=== PATIENT | female | born 1990 | race African-American/Black ===

== ENCOUNTER 2017-06-23 07:03 | Emergency (ER) | END 2017-06-23 09:10 | disposition home or self-care (01) ==

== ENCOUNTER 2017-10-29 07:42 | Emergency (ER) | END 2017-10-29 08:52 | disposition home or self-care (01) ==

== ENCOUNTER 2017-11-19 07:35 | Emergency (ER) | END 2017-11-19 10:09 | disposition home or self-care (01) ==

== ENCOUNTER 2017-12-15 04:31 | Emergency (ER) | END 2017-12-15 05:43 | disposition home or self-care (01) ==

== ENCOUNTER 2018-01-30 05:33 | Inpatient (IN) | END 2018-01-31 16:20 | disposition home or self-care (01) | DRG 832 ==

== ENCOUNTER 2018-02-03 02:47 | Emergency (ER) | END 2018-02-03 05:29 | disposition home or self-care (01) ==

== ENCOUNTER 2018-02-04 03:44 | Observation (INO) | END 2018-02-06 11:29 | disposition home or self-care (01) ==

== ENCOUNTER 2018-02-24 01:27 | Emergency (ER) | END 2018-02-24 04:20 | disposition home or self-care (01) ==

== ENCOUNTER 2018-06-22 18:10 | Outpatient (CLI) | payer OTHER ==
[~2018-06-22 18:10] MED LIST: ACET500C5 PO; CEPH-443 PO; FAMO-96 PO; METO10TA92 PO; NITR-58 PO; ONDA4TAB14 PO; PREN1TAB62 PO
[2018-06-22 18:30] VITALS: BP 140/63; PULSE 84
--- NOTE | 2018-06-22 22:09 | TRIAGE ---
OB Triage Datetime Report Generated by CPN: 06/22/2018 22:09 Datetime: 06/22/2018 21:15 Stage of : OB Triage Datetime: 06/22/2018 18:37 Labor Evaluation Frequency: 0 Monitor Mode: External Resting Tone [place]: Relaxed Heart Rate FHR Baseline Rate: 140 Monitor Mode: External US Variability: Moderate 6-25 bpm Decelerations: None Pain Assessment Pain Scale: 5 Pain Presence: Intermittent Pain Type: Ache Pain Location: Back Datetime: 06/22/2018 18:24 Stage of : OB Triage Maternal Assessment Level of Consciousness: Fully Conscious DTR's/Clonus: DTRs 2+; No Clonus Headache: Denies Blurred Vision: No Respiratory Effort: Unlabored; Regular Rhythm; Equal Expansion Breath Sounds, Left: Clear and Equal Breath Sounds, Right: Clear and Equal Nausea/Vomiting: Denies RUQ Epigastric Pain: Denies Facial Edema: None Temperature Route: Axillary Fall Risk Assessment History of Falling: (0) No Secondary Diagnosis: (0) No Ambulatory Aid: (0) Bedrest/Nurse Assist IV Therapy: (0) No Gait: (0) Normal/Bedrest/Immobile Mental Status: (0) Oriented to Own Ability Fall Score: 0 Fall Risk Score Definition: No Risk: No action required Datetime: 06/22/2018 18:15 Time of Arrival: 06/22/2018 18:15 EGA: 26.6 Chief Complaint: PT STATED THAT SHE HAS FEELING BACK PAIN SINCE X3 DAYS AGO Movement: Present Contractions: Irregular Rupture of Membranes: Denies Vaginal Bleeding: None Vaginal Discharge: Denies Recent Sexual Intercouse: Denies Abdominal Trauma: Not Applicable Patient Complaints: Contractions; Back Pain Time Provider Notified: 06/22/2018 19:00 Provider Notified: HADADIAN Initial Plan: monitors applied, MD Datetime: 06/22/2018 18:12 Comments: MONITORS APPLIED
--- NOTE | 2018-06-22 22:19 | PN ---
Triage Information Date/Time Reason for visit: Back pain Weeks of Gestation This is a 28-year-old patient 3 para 1 at 26 weeks and 6 days of gestation with estimated date of delivery September 22, 2018 Patient presents with chief complaint of back pain X 3 days She reports positive movement, denies any contractions, denies any vaginal bleeding or leaking fluid /Para 3 para 1 Diabetes: none Hypertention: none Objective Vital Signs Date Temp Pulse Resp B/P (MAP) Pulse Ox O2 O2 Flow FiO2 Time Delivery Rate 06/22/18 98.1 84 140/63 100 Room Air 18:30 (88) Heart Rate: 140's Heart Rate Comments heart rate tracing appropriate for gestational age Contractions: None Results/Medications Results 24 hrs Laboratory Tests Test 06/22/18 19:30 Urine Color YELLOW Urine Clarity SLIGHTLY CLOUDY A Urine pH 5.0 Urine Specific [place] 1.032 H Urine Ketones TRACE A Urine Nitrite NEGATIVE Urine Bilirubin NEGATIVE Urine Urobilinogen NEGATIVE Urine Leukocyte Esterase 1+ H Urine Microscopic RBC 5 Urine Microscopic WBC 8 H Urine Squamous Epithelial Cells MODERATE Urine Calcium Oxalate Crystals MODERATE Urine Mucus MANY A Urine Hemoglobin NEGATIVE Urine Glucose NEGATIVE Urine Total Protein NEGATIVE Fibronectin NEGATIVE Imaging Results PROCEDURE: US AYAN CLINICAL INDICATION: Amniotic fluid index. well-being. TECHNIQUE: Limited OB ultrasound was performed to determine four-quadrant amniotic fluid index. COMPARISON: 02/24/2018 FINDINGS: There is a single live intrauterine . Normal cardiac activity is identified at a rate of 154 beats per minute. presentation is breech with the head to the maternal left. Placenta is posterior grade 1. Cervix is closed and measures 3.4 cm. Four quadrant AYAN = 17.1 cm IMPRESSION: Four quadrant AYAN = 17.1 cm Breech position RPTAT: HH .oCrnell Wells MD, MD Date Time Electronically viewed and signed by .Cornell Wells MD, MD on 06/22/2018 20:18 .W/ CC: MICHEL STORM [phone] Disposition: Discharge Assessment/Plan Urinalysis suggestive of UTI Prescription for Macrobid was given Urine culture was sent Patient counseled to increase p.o. hydration Patient instructed to follow-up with her own [employer] in 1-2 days HARDY GONZALEZ MD Jun 22, 2018 22:19
== END 2018-06-22 21:21 | disposition home or self-care (01) ==
LOC: OBT 18:10 → L-D 18:11 → OBT 21:21
PROVIDERS: ATTEND Obstetrics & Gynecology
DX: O26.892 Other specified pregnancy related conditions, second trimester (principal); M54.9 Dorsalgia, unspecified; Z3A.26 26 weeks gestation of pregnancy
CPT/HCPCS: 76815; 76817; 81001; 82731; 87086; Z7500; G0463